=== PATIENT | male | born 1995 | race Caucasian/White ===

== ENCOUNTER 2021-04-13 01:50 | Emergency (ER) | payer OTHER ==
[2021-04-13] MEDS ORDERED: NA CHLORIDE 0.9% 1,000 ML ONE (02:35)
[2021-04-13 02:40] LABS: Urine Blood Trace-intact (Negative); Urine Glucose Negative (Negative); Urine Protein 1+ (Negative); Urine Specific Gravity >=1.030 (1.005-1.030)
--- NOTE | 2021-04-13 02:49 | EDPHYS ---
Physician Documentation [facility] Name: Silver Navarro Age: 25 yrs Sex: Male : 1995 Arrival Date: 04/13/2021 Time: 01:52 Bed 16 Private MD: ED Physician Víctor Victoria HPI: 04/13 02:39 This 25 yrs old Male presents to ER via EMS with complaints of Suicidal celena Ideation. 02:39 The patient presents to the emergency department with anxiety, over a relationship, celena depression, over a relationship. Onset: The symptoms/episode began/occurred just prior to arrival. Past psychiatric history: Prior diagnosis: no previous psychiatric diagnosis known. Associated signs and symptoms: The patient has no apparent associated signs or symptoms. Severity of symptoms: At their worst the symptoms were mild in the emergency department the symptoms have improved. The patient has not experienced similar symptoms in the past. Historical: - Allergies: 02:32 No Known Allergies; jm8 - Home Meds: 02:32 None [Active]; jm8 - PMHx: 02:32 None; jm8 - PSHx: 02:32 None; jm8 - Immunization history:: Adult Immunizations up to date. - Social history:: Smoking status: unknown. - Family history:: not pertinent. ROS: 02:39 Constitutional: Negative for fever, chills, and weight loss, Eyes: Negative for injury, celena pain, redness, and discharge, ENT: Negative for injury, pain, and discharge, Neck: Negative for injury, pain, and swelling, Cardiovascular: Negative for chest pain, palpitations, and edema, Respiratory: Negative for shortness of breath, cough, wheezing, and pleuritic chest pain, Abdomen/GI: Negative for abdominal pain, nausea, vomiting, diarrhea, and constipation, Back: Negative for injury and pain, : Negative for injury, bleeding, discharge, and swelling, MS/Extremity: Negative for injury and deformity, Skin: Negative for injury, rash, and discoloration, Neuro: Negative for headache, weakness, numbness, tingling, and seizure, Allergy/Immunology: Negative for hives, rash, and allergies, Endocrine: Negative for neck swelling, polydipsia, polyuria, polyphagia, and marked weight changes, Hematologic/Lymphatic: Negative for swollen nodes, abnormal bleeding, and unusual bruising. 02:39 Psych: Positive for anxiety, depression, UPSET. Exam: 02:39 Constitutional: This is a well developed, well nourished patient who is awake, alert, celena and in no acute distress. Head/Face: Normocephalic, atraumatic. Eyes: Pupils equal round and reactive to light, extra-ocular motions intact. Lids and lashes normal. Conjunctiva and sclera are non-icteric and not injected. Cornea within normal limits. Periorbital areas with no swelling, redness, or edema. ENT: Nares patent. No nasal discharge, no septal abnormalities noted. Tympanic membranes are normal and external auditory canals are clear. Oropharynx with no redness, swelling, or masses, exudates, or evidence of obstruction, uvula midline. Mucous membranes moist. Neck: Trachea midline, no thyromegaly or masses palpated, and no cervical lymphadenopathy. Supple, full range of motion without nuchal rigidity, or vertebral point tenderness. No Meningismus. Chest/axilla: Normal chest wall appearance and motion. Nontender with no deformity. No lesions are appreciated. Cardiovascular: Regular rate and rhythm with a normal S1 and S2. No gallops, murmurs, or rubs. Normal PMI, no JVD. No pulse deficits. Respiratory: Lungs have equal breath sounds bilaterally, clear to auscultation and percussion. No rales, rhonchi or wheezes noted. No increased work of breathing, no retractions or nasal flaring. Abdomen/GI: Soft, non-tender, with normal bowel sounds. No distension or tympany. No guarding or rebound. No evidence of tenderness throughout. Back: No spinal tenderness. No costovertebral tenderness. Full range of motion. Skin: Warm, dry with normal turgor. Normal color with no rashes, no lesions, and no evidence of cellulitis. MS/ Extremity: Pulses equal, no cyanosis. Neurovascular intact. Full, normal range of motion. Neuro: Awake and alert, GCS 15, oriented to person, place, time, and situation. Cranial nerves II-XII grossly intact. Motor strength 5/5 in all extremities. Sensory grossly intact. Cerebellar exam normal. Normal gait. 02:39 Psych: Behavior/mood is pleasant, Affect is calm, Oriented to person, place, time, Patient has no thoughts/intents to harm self or others. Judgement / Insight is normal. Memory is normal. Delusions/hallucinations are not present. 02:46 ECG was reviewed by the Attending Physician. [facility] Vital Signs: 01:52 BP 133 / 100; Pulse 89; Resp 16; Temp 98.3; Pulse Ox 99% on R/A; Pain 0/10; jm8 03:54 BP 124 / 85; Pulse 94; Resp 16; Pulse Ox 99% on R/A; jm8 MDM: 02:08 Patient medically screened. [facility] 02:41 Differential diagnosis: depression. Data reviewed: vital signs, nurses notes, lab test [facility] result(s), EKG. Data interpreted: laboratory monitor: rate is 99 beats/min, rhythm is regular, Pulse oximetry: on room air is 99 %. Counseling: I had a detailed discussion with the patient and/or guardian regarding: the historical points, exam findings, and any diagnostic results supporting the discharge/admit diagnosis, lab results, radiology results, the need for outpatient follow up, for definitive care, a family practitioner, a psychiatrist. 04/13 02:09 Order name: Acetaminophen [facility] 04/13 02:09 Order name: Basic Metabolic Panel [facility] 04/13 02:09 Order name: CBC with Diff [facility] 04/13 02:09 Order name: ETOH Level [facility] 04/13 02:09 Order name: Hepatic Function [facility] 04/13 02:09 Order name: PT-INR [facility] 04/13 02:09 Order name: Ptt, Activated [facility] 04/13 02:09 Order name: Salicylate [facility] 04/13 02:09 Order name: Urine Drug Screen [facility] 04/13 02:40 Order name: Urine Dipstick-Ancillary; Complete Time: 03:16 [facility] 04/13 03:03 Order name: Salicylates Level; Complete Time: 03:16 [facility] 04/13 03:08 Order name: Urine Drug Screen; Complete Time: 03:16 [facility] 04/13 03:08 Order name: Alcohol Serum/Plasma; Complete Time: 03:16 [facility] 04/13 03:18 Order name: Basic Metabolic Panel; Complete Time: 03:27 [facility] 04/13 02:09 Order name: Suicide Precautions; Complete Time: 02:33 [facility] 04/13 02:09 Order name: EKG; Complete Time: 02:10 [facility] 04/13 02:09 Order name: EKG - Nurse/Tech; Complete Time: 02:33 [facility] 04/13 02:09 Order name: IV Saline Lock; Complete Time: : [facility] 04/13 02:09 Order name: Labs collected and sent; Complete Time: : [facility] 04/13 02:09 Order name: Suicide Screening (Chaves); Complete Time: : [facility] 04/13 02:09 Order name: Urine Dipstick-Ancillary (obtain specimen); Complete Time: 02: [facility] 04/13 03:18 Order name: Liver (Hepatic) Function; Complete Time: 03: [facility] 04/13 03:18 Order name: Acetaminophen Level; Complete Time: 03: [facility] 04/13 03:18 Order name: Protime (+INR); Complete Time: : [facility] 04/13 03:18 Order name: PTT, Activated Partial Thromb; Complete Time: : [facility] 04/13 03:19 Order name: CBC with Automated Diff; Complete Time: : [facility] EC:46 Rate is 75 beats/min. Rhythm is regular. QRS [place] is Normal. IA interval is normal. QRS celena interval is normal. QT interval is normal. No Q waves. T waves are Normal. No ST changes noted. Clinical impression: Normal ECG and No evidence of ischemia. Interpreted by me. Reviewed by me. Administered Medications: 02:31 Drug: NS 0.9% 1000 ml Route: IV; Rate: 1 bolus; Site: right antecubital; jm8 03:58 Follow up: IV Status: Completed infusion jm8 Disposition: 04/13/21 02:48 Discharged to Home. Impression: State of emotional shock and stress, unspecified, Abuse of non-psychoactive substances, Adverse effect of amphetamines. - Condition is Stable. - Discharge Instructions: Stress and Stress Management, Delirium. - Medication Reconciliation Form, Thank You Letter, Antibiotic Education, Prescription Opioid Use form. - Follow up: Private Physician; When: 2 - 3 days; Reason: Recheck today's complaints, Continuance of care, Re-evaluation by your physician. Follow up: Nik Sherwood MD; When: 2 - 3 days; Reason: Recheck today's complaints, Re-evaluation by your physician. - Problem is new. - Symptoms have improved. Signatures: Dispatcher [employer] Víctor Woods MD MD cha Malcaba Eugene, RN RN jm8 Corrections: (The following items were deleted from the chart) 02:49 02:48 04/13/2021 02:48 Discharged to Home. Impression: State of emotional shock and celena stress, unspecified. Condition is Stable. Discharge Instructions: Stress and Stress Management. Forms are Medication Reconciliation Form, Thank You Letter, Antibiotic Education, Prescription Opioid Use. Follow up: Private Physician; When: 2 - 3 days; Reason: Recheck today's complaints, Continuance of care, Re-evaluation by your physician. Problem is new. Symptoms have improved. [facility] 03:28 02:49 04/13/2021 02:48 Discharged to Home. Impression: State of emotional shock and [facility] stress, unspecified. Condition is Stable. Discharge Instructions: Stress and Stress Management, Delirium. Forms are Medication Reconciliation Form, Thank You Letter, Antibiotic Education, Prescription Opioid Use. Follow up: Private Physician; When: 2 - 3 days; Reason: Recheck today's complaints, Continuance of care, Re-evaluation by your physician. Follow up: Nik Sherwood; When: 2 - 3 days; Reason: Recheck today's complaints, Re-evaluation by your physician. Problem is new. Symptoms have improved. [facility] 03:59 03:28 04/13/2021 02:48 Discharged to Home. Impression: State of emotional shock and jm8 stress, unspecified; Abuse of non-psychoactive substances; Adverse effect of amphetamines. Condition is Stable. Discharge Instructions: Stress and Stress Management, Delirium. Forms are Medication Reconciliation Form, Thank You Letter, Antibiotic Education, Prescription Opioid Use. Follow up: Private Physician; When: 2 - 3 days; Reason: Recheck today's complaints, Continuance of care, Re-evaluation by your physician. Follow up: Nik Sherwood; When: 2 - 3 days; Reason: Recheck today's complaints, Re-evaluation by your physician. Problem is new. Symptoms have improved. celena
--- NOTE | 2021-04-13 02:49 | ER ---
Nurse's Notes [facility] Name: Silver Navarro Age: 25 yrs Sex: Male : 1995 Arrival Date: 04/13/2021 Time: 01:52 Bed 16 Private MD: Diagnosis: State of emotional shock and stress, unspecified;Abuse of non-psychoactive substances;Adverse effect of amphetamines Presentation: 04/13 01:52 Chief complaint: EMS states: patient is SI w/ plan. Patient accompanied by [place] [employer]. Per PD and EMS, patient was pointing a gun at his head and stating he was going to shoot himself after getting into an argument with his and mother in law. Patient denies HI and SI currently and pointed the gun at himself more for attention. Coronavirus screen: Client denies travel out of the [place] in the last 14 days. At this time, the client does not indicate any symptoms associated with coronavirus-19. Ebola Screen: Patient negative for fever greater than or equal to 101.5 degrees Fahrenheit, and additional compatible Ebola Virus Disease symptoms Patient denies exposure to infectious person. Patient denies travel to an Ebola-affected area in the 21 days before illness onset. Initial Sepsis Screen: Does the patient meet any 2 criteria? No. Patient's initial sepsis screen is negative. Does the patient have a suspected source of infection? No. Patient's initial sepsis screen is negative. Risk Assessment: Do you want to hurt yourself or someone else? Patient reports no desire to harm self or others. Onset of symptoms was April 13, 2021. 01:52 Method Of Arrival: EMS: [facility] jm8 01:52 Acuity: LIONEL 2 jmMore Historical: - Allergies: 02:32 No Known Allergies; michell8 - Home Meds: 02:32 None [Active]; michell8 - PMHx: 02:32 None; [place] - PSHx: 02:32 None; [place] - Immunization history:: Adult Immunizations up to date. - Social history:: Smoking status: unknown. - Family history:: not pertinent. Screenin:04 Abuse screen: Denies threats or abuse. Denies injuries from another. Nutritional [place] screening: No deficits noted. Tuberculosis screening: No symptoms or risk factors identified. Fall Risk None identified. Assessment: 01:59 General: Appears in no apparent distress. comfortable, Behavior is calm, cooperative, jm8 appropriate for age. Pain: Denies pain. Neuro: No deficits noted. Level of Consciousness is awake, alert, obeys commands, Oriented to person, place, time. 02:01 Cardiovascular: No deficits noted. Respiratory: No deficits noted. Airway is patent jm8 Trachea midline Respiratory effort is even, unlabored, Respiratory pattern is regular, symmetrical. GI: No deficits noted. No signs and/or symptoms were reported involving the gastrointestinal system. : No deficits noted. No signs and/or symptoms were reported regarding the genitourinary system. EENT: No deficits noted. No signs and/or symptoms were reported regarding the EENT system. Derm: No deficits noted. No signs and/or symptoms reported regarding the dermatologic system. Skin is intact, is healthy with good turgor, Skin is dry, Skin is pink, warm \\T\\ dry. normal, Skin temperature is warm. Musculoskeletal: No deficits noted. No signs and/or symptoms reported regarding the musculoskeletal system. Psych: 02:02 Hettinger Suicide Severity Screening: In the past month, have you wished you were jm8 or wished you could go to sleep and not wake up? Patient responds "yes." Based off the client's responses additional C-SSRS screening is required. "In the past month, have you actually had any thoughts of killing yourself?" Patient responds "yes." Based off the client's response additional Hettinger suicide severity screening questions to be further documented on paper forms. "In your lifetime, have you ever done anything, started to do anything, or prepared to do anything to end your life?" Patient responds "yes." Patient reports suicidal intent within 3 past months. Subjective: Patient's mood is Delusions are. Subjective: Patient's mood is normal Delusions are denied. Objective: Patient is cooperative, Speech is normal, Affect is appropriate. Interventions: Removed personal items and placed in bag. Patient placed in hospital gown. Searched person for dangerous items. Belonging list filled out. Safety Checks: Personal items have been removed. Pt has been placed in a hallway bed/chair. No visitors are present at this time. Pt denies substance abuse. Commitment: Patient will be an involuntary commitment. Commitment papers completed. Vital Signs: 01:52 BP 133 / 100; Pulse 89; Resp 16; Temp 98.3; Pulse Ox 99% on R/A; Pain 0/10; jm8 03:54 BP 124 / 85; Pulse 94; Resp 16; Pulse Ox 99% on R/A; jm8 ED Course: 01:52 Patient arrived in ED. jm8 01:58 Triage completed. jm8 02:00 Inserted saline lock: 20 gauge in right antecubital area, using aseptic technique. jm8 02:00 IV discontinued, intact, bleeding controlled. jm8 02:04 Patient has correct armband on for positive identification. Call light in reach. Side jm8 rails up X2. Adult w/ patient. 02:04 No provider procedures requiring assistance completed. jm8 02:08 Víctor Victoria MD is Attending Physician. celena 02:33 Arm band placed on right wrist. jm8 02:48 Nik Sherwood MD is Referral Physician. celena Administered Medications: 02:31 Drug: NS 0.9% 1000 ml Route: IV; Rate: 1 bolus; Site: right antecubital; jm8 03:58 Follow up: IV Status: Completed infusion jm8 Outcome: 02:48 Discharge ordered by . celena 03:54 Discharged to home ambulatory. jm8 03:54 Condition: good 03:54 Discharge instructions given to patient, Instructed on discharge instructions, follow up and referral plans. Demonstrated understanding of instructions, follow-up care. 03:59 Patient left the ED. jm8 Signatures: Víctor Victoria MD MD cha Malcaba, Joseph, RN RN jm8
[2021-04-13 02:50] LABS: Absolute Lymphocytes (CBC) 3.4 K/uL (0.7-4.9); Basophils % 0.5 % (0-1.3); Hematocrit 43.3 % (39.6-49.0); Lymphocytes % 30.8 % (15.3-44.8); RBC Red Blood Cell Count 4.83 M/uL (4.33-5.43)
[2021-04-13 03:00] LABS: Protime INR 1.06
[2021-04-13 03:07] LABS: Barbiturates NEGATIVE (NEGATIVE); Benzodiazepines NEGATIVE (NEGATIVE); Cocaine NEGATIVE (NEGATIVE); METHAMPHETAM POSITIVE (NEGATIVE); Methadone NEGATIVE (NEGATIVE); Opiates NEGATIVE (NEGATIVE); Phencyclidine NEGATIVE (NEGATIVE); THC Cannibis POSITIVE (NEGATIVE)
[2021-04-13 03:17] LABS: ALT/SGPT 24 U/L (12-78); AST/SGOT 14 U/L (15-37); Albumin 4.4 g/dL (3.4-5.0); Alkaline Phosphatase 66 U/L (45-117); BUN Blood Urea Nitrogen 26 mg/dL (7-18); Bicarbonate 27 mmol/L (21-32); Bilirubin Direct 0.2 mg/dL (0-0.2); Bilirubin Total 0.7 mg/dL (0.2-1.0); Glucose Level 97 mg/dL (74-106); Potassium 3.6 mmol/L (3.5-5.1); Protein, Total 7.9 g/dL (6.4-8.2); Sodium Level 139 mmol/L (136-145)
[2021-04-13 04:51] VITALS: BP 124/85; O2SAT 99
[2021-04-13 04:53] VITALS: TEMP 98.3
--- NOTE | 2021-04-13 08:42 | EKG ---
Test Date: 2021-04-13 Test Time: 02:17:50 [employer] Worker: . MEASUREMENT RESULTS: Intervals: Rate: 75 [place]: QRSD: 100 QT: 396 QTc: 442 Pauline: P: KS: QRS: 86 T: 63 INTERPRETIVE STATEMENTS: Undetermined rhythm Junctional ST depression, probably normal Borderline ECG No previous ECG available for comparison Electronically Signed On 04-13-21 08:41:09 CDT by Saul Foster
== END 2021-04-13 03:59 | disposition home or self-care (01) ==
LOC: ER 01:50
DX: R45.7 State of emotional shock and stress, unspecified (principal); F55.8 Abuse of other non-psychoactive substances; T43.625A Adverse effect of amphetamines, initial encounter
CPT/HCPCS: 93005; 85025; 80048; 36415; 80320; 80329 ×2; 85610; 80076; 80307 ×8; 85730; 81003; J7030; 96360; 99284